=== PATIENT | male | born 1995 | race Caucasian/White ===

== ENCOUNTER 2022-07-30 14:02 | Emergency (ER) | payer OTHER ==
[~2022-07-30] VITALS: Ht 185.4 cm; Wt 102.1 kg
[2022-07-30 14:05] VITALS: O2SAT 98
[2022-07-30] MEDS ORDERED: ONDANSETRON ODT4 MG PO (15:15)
[2022-07-30] MEDS ORDERED: PEPCID AC10 MG PO (15:15)
== END 2022-07-30 15:24 | disposition home or self-care (01) ==
LOC: FSED 14:17
DX: R10.13 Epigastric pain (principal); R11.0 Nausea; R19.7 Diarrhea, unspecified
CPT/HCPCS: 87400; 99284